=== PATIENT | female | born 1985 | race African-American/Black ===

== ENCOUNTER → 2017-05-11 | Outpatient (CLI) | payer BC ==
[2017-05-11 07:05] LABS: ARTERIAL BLD GAS O2 SATURATION 95.6 % (92-100); ARTERIAL BLD GAS TCO2 CT 19.1; ARTERIAL BLOOD GAS HCO3 18.3 meq/L (22-26); ARTERIAL BLOOD GAS PHT 7.43 C (7.35-7.45); ARTERIAL BLOOD GAS PO2 88.4 mmHg (80-100); ARTERIAL BLOOD GAS PO2T 88.4 (80-100); ARTERIAL BLOOD GAS pH 7.43 (7.35-7.45); OXYHEMOGLOBIN 94.4 %
[2017-05-11 07:06] LABS: ALLEN TEST YES; ALLENS TEST RESULT PASS; ATS? YES
== END ==
LOC: COL.PUL 06:45
PROVIDERS: Internal Medicine Interventional Cardiology
DX: R06.02 Shortness of breath (principal)

== ENCOUNTER 2017-06-16 04:39 | Inpatient (IN) | payer BC ==
[2017-06-16] VITALS (15 sets, daily range): BP systolic 119–145; BP diastolic 55–84; PULSE 69–103; TEMP 97.3–99.3
[~2017-06-16] VITALS: Ht 154.9 cm; Wt 91.8 kg
[2017-06-16] MEDS ORDERED: PRENATAL 19 CH1 EACH PO (05:11)
[2017-06-16] MEDS ORDERED: NORMODYNE100 MG PO (05:11)
[2017-06-16 07:06] LABS: ADD PATHOLOGY DIFF REVIEW NO; HEMATOCRIT 32.3 % (37.0-47.0); HEMOGLOBIN 10.4 g/dl (12.5-16.0); MEAN CELL VOLUME 78 fl (80.0-100.0); MEAN CORPUSCULAR HEMOGLOBIN 25 pg (27.0-31.0); MEAN CORPUSCULAR HGB CONC 32 g/dl (33.0-37.0); MEAN PLATELET VOLUME 10.4 fl (7.4-10.4); PLATELET COUNT 224 K/mm3 (130-400); RED BLOOD COUNT 4.15 M/mm3 (4.10-5.30); WHITE BLOOD COUNT 7.7 K/mm3 (4.8-10.8)
[2017-06-16 08:04] LABS: BAND 3 % (0-10); LYMPHOCYTE 37 % (20.0-51.0); METAMYELOCYTE 1 % (0-0); NEUTROPHILS 53 % (42.0-75.2); PLATELET ESTIMATE NORMAL (NORMAL); TOTAL CELLS COUNTED 100
[2017-06-16 08:06] LABS: HYPOCHROMIA 1+; MICROCYTOSIS 1+
[2017-06-17 01:00] VITALS: BP 125/57; PULSE 76; TEMP 97.6
[2017-06-17 09:13] VITALS: BP 103/54; PULSE 95; TEMP 97.6
[2017-06-17] MEDS ORDERED: IBU800 M1 PO (11:43)
[2017-06-17] MEDS ORDERED: PERCOCET 325 MG1 TA2 PO (11:43)
== END 2017-06-17 15:00 | disposition home or self-care (01) | DRG 774 ==
LOC: LDRO 04:39 → LDR 06:30 → OB 06:31 → LDRO 06:31 → OB 09:00 → LDRO 06-18 16:25
PROVIDERS: Student in an Organized Health Care Education/Training Program
PROC: 10E0XZZ Delivery of Products of Conception, External Approach (ICD-10-PCS; principal; 2017-06-16)
PROC: 0KQM0ZZ Repair Perineum Muscle, Open Approach (ICD-10-PCS; 2017-06-16)
DX: O99.42 Diseases of the circulatory system complicating childbirth (principal); R00.0 Tachycardia, unspecified; I34.1 Nonrheumatic mitral (valve) prolapse; O70.1 Second degree perineal laceration during delivery; Z3A.39 39 weeks gestation of pregnancy; Z37.0 Single live birth
CPT/HCPCS: J2590; J7120